=== PATIENT | female | born 1975 | race American Indian/Alaskan Native ===

== ENCOUNTER 2017-12-03 18:28 | Emergency (ER) | payer SELFPAY ==
--- NOTE | 2017-12-03 19:11 | Emergency Department Report ---
ED Chest Pain HPI - General Chief Complaint: Chest Pain Stated Complaint: CHEST PAIN Time Seen by Provider: 12/03/17 18:44 Source: EMS Mode of arrival: Ambulatory Limitations: No Limitations - History of Present Illness Initial Comments: 42-year-old female presents to the emergency department from home with a complaint of left-sided chest pain that started earlier this morning. There is some radiation towards the left shoulder and the back. It is associated with some shortness of breath but she denies any fever, nausea, vomiting or diaphoresis. She tried some Goody powder without any relief. The symptoms have been intermittent but getting progressively worse. She has a past medical history of epilepsy and anxiety. She has a tobacco smoker. She denies any illicit drug use. Her primary care physician is through [facility] (formerly [facility]3]. Severity scale (0 -10): 5 - Related Data Previous Rx's Medication Instructions Recorded Last Taken Type Esomeprazole Magnesium [NexIUM] 40 mg PO QDAY #30 capsule. 07/16/14 Unknown Rx Famotidine [Pepcid] 20 mg PO BID #60 tablet 07/16/14 Unknown Rx Ondansetron [Zofran Odt] 4 mg PO Q8HR PRN #10 tab.rapdis 07/16/14 Unknown Rx LORazepam [Ativan] 2 mg PO Q8HR PRN #10 tablet 12/03/17 Unknown Rx levETIRAcetam [Keppra] 500 mg PO BID #60 tablet 12/03/17 Unknown Rx Allergies Allergy/AdvReac Type Severity Reaction Status Date / Time acetaminophen [From Anexsia] AdvReac Anaphylaxis Verified 07/16/14 11:32 hydrocodone bitartrate AdvReac Anaphylaxis Verified 07/16/14 11:32 [From Anexsia] montelukast sodium AdvReac Anaphylaxis Verified 07/16/14 11:32 [From Singulair] Heart Score - HEART Score History: Slightly suspicious EKG: Non-specific Age: < 45 Risk factors: 1-2 risk factors Troponin: < normal limit HEART Score: 2 - Critical Actions Critical Actions: 0-3 pts:0.9-1.7%risk of adverse cardiac event.Candidate for discharge ED Review of Systems ROS: Stated complaint: CHEST PAIN Other details as noted in HPI Comment: All other systems reviewed and negative Constitutional: denies: chills, fever Eyes: denies: eye pain, eye discharge, vision change ENT: denies: ear pain, throat pain Respiratory: shortness of breath. denies: cough Cardiovascular: chest pain. denies: palpitations Gastrointestinal: denies: abdominal pain, nausea, diarrhea Genitourinary: denies: dysuria, discharge Musculoskeletal: back pain, arthralgia Skin: denies: rash, lesions Neurological: denies: headache, weakness ED Past Medical Hx - Past Medical History Hx Seizures: Yes Hx Asthma: Yes - Surgical History Additional Surgical History: hyst - Social History Smoking Status: Current Every Day Smoker - Medications Home Medications: Home Medications Medication Instructions Recorded Confirmed Last Taken Type Esomeprazole Magnesium [NexIUM] 40 mg PO QDAY #30 capsule. 07/16/14 Unknown Rx Famotidine [Pepcid] 20 mg PO BID #60 tablet 07/16/14 Unknown Rx Ondansetron [Zofran Odt] 4 mg PO Q8HR PRN #10 tab.rapdis 07/16/14 Unknown Rx LORazepam [Ativan] 2 mg PO Q8HR PRN #10 tablet 12/03/17 Unknown Rx levETIRAcetam [Keppra] 500 mg PO BID #60 tablet 12/03/17 Unknown Rx ED Physical Exam - General Limitations: No Limitations - Other Other exam information: GENERAL: The patient is well-developed well-nourished. HEENT: Normocephalic. Atraumatic. Patient has moist mucous membranes. EYES: Extraocular motions are intact. Pupils are equal and reactive to light bilaterally. NECK: Supple. Trachea is midline. CHEST/LUNGS: Clear to auscultation. There is no respiratory distress noted. HEART/CARDIOVASCULAR: Regular. There is no tachycardia. There is no gallop rub or murmur. ABDOMEN: Abdomen is soft, nontender. Patient has normal bowel sounds. There is no abdominal distention. SKIN: Skin is warm and dry. NEURO: The patient is awake, alert, and oriented. The patient is cooperative. The patient has no focal neurologic deficits. The patient has normal speech. MUSCULOSKELETAL: There is no tenderness or deformity. There is no limitation range of motion. There is no evidence of acute injury. ED Course Vital Signs 12/03/17 12/03/17 12/03/17 18:31 18:46 19:15 Temperature 98.6 F Pulse Rate 82 Respiratory 16 16 Rate Blood Pressure Blood Pressure 138/96 [Left] O2 Sat by Pulse 99 100 Oximetry 12/03/17 12/03/17 12/03/17 19:24 19:41 19:45 Temperature Pulse Rate 85 80 Respiratory 19 Rate Blood Pressure 136/94 126/74 Blood Pressure [Left] O2 Sat by Pulse 99 94 Oximetry 12/03/17 12/03/17 12/03/17 20:00 20:15 20:30 Temperature Pulse Rate 81 74 74 Respiratory 20 16 18 Rate Blood Pressure 131/76 120/68 123/74 Blood Pressure [Left] O2 Sat by Pulse 100 99 98 Oximetry 12/03/17 12/03/17 12/03/17 20:45 21:00 21:15 Temperature Pulse Rate 71 72 76 Respiratory 17 18 14 Rate Blood Pressure 114/68 109/69 131/73 Blood Pressure [Left] O2 Sat by Pulse 100 99 100 Oximetry 12/03/17 12/03/17 12/03/17 21:30 21:45 22:00 Temperature Pulse Rate Respiratory 19 13 19 Rate Blood Pressure 120/68 116/75 120/71 Blood Pressure [Left] O2 Sat by Pulse 100 100 100 Oximetry 12/03/17 12/03/17 12/03/17 22:15 22:30 22:45 Temperature Pulse Rate Respiratory 14 19 16 Rate Blood Pressure 121/71 119/69 123/73 Blood Pressure [Left] O2 Sat by Pulse Oximetry - Consultations Consultation #1: 12/04/17 00:02 The licensed occupational therapist on-call, Dr. Salmon, was gracious enough to take a look at the patient's EKG and concurs that it appears most consistent with J-point elevation and/or early repolarization and that there are no signs of any morphology consistent with ST elevation MS. FADI score - Fadi Score Age > 65: (0) No Aspirin use within the Past 7 Days: (0) No 3 or more CAD Risk Factors: (0) No 2 or more Angina events in past 24 hrs: (1) Yes Known CAD with more than 50% Stenosis: (0) No Elevated Cardiac Markers: (0) No ST Deviation Greater than 0.5mm: (0) No FADI Score: 1 ED Medical Decision Making - Lab Data Result diagrams: 12/03/17 19:06 12/03/17 19:06 - EKG Data -: EKG Interpreted by Me EKG shows normal: sinus rhythm, axis, intervals, QRS complexes (septal Q waves) , ST-T waves (mild ST elevation 2 leads V1 and V2 but no reciprocal depressions) Rate: normal - EKG Data When compared to previous EKG there are: previous EKG unavailable Interpretation: other (sinus rhythm, normal axis, normal intervals. Q waves to the septal leads. Mild ST elevations to leads V1 and V2 but no reciprocal depressions) - Radiology Data Radiology results: image reviewed interpreted by me: Chest x-ray did not show any pleural effusion, focal consolidation, pneumothorax or obvious pneumonia. - Medical Decision Making Patient presented with some left-sided chest pain that started earlier today. EKG does not show any signs of ST elevation MS or dysrhythmia. Chest x-ray does not show any acute process including no pleural effusions, pneumothorax, focal consolidation or pneumonia. Labs have been unremarkable including negative troponins 2 and a negative d-dimer. Patient was given a single dose of pain medication and had almost complete resolution of her chest discomfort. The patient's only risk factor for coronary artery disease is her tobacco use. A repeat EKG was also done that did not show any changes. The patient was reevaluated multiple times of her multiple hours and is feeling improved and asking for discharge home. Since she has had a negative workup thus far and is feeling improved, she will be discharged home to follow up outpatient with cardiology and primary care. She will return to the ER with any worsening of her symptoms or any acute distress. The patient is very low on the heart score criteria. She has a low FADI score. - Differential Diagnosis MS, PE, costal chondritis, GERD Critical Care Time: No Critical care attestation.: If time is entered above; I have spent that time in minutes in the direct care of this critically ill patient, excluding procedure time. ED Disposition Clinical Impression: Chest pain Qualifiers: Chest pain type: unspecified Qualified Code(s): R07.9 - Chest pain, unspecified Disposition: DC-01 TO HOME OR SELFCARE Is pt being admited?: No Condition: Stable Instructions: Chest Pain (ED), How to Stop Smoking (ED) Additional Instructions: Please follow up with a licensed occupational therapist in the next few days. I have given you a referral for a local licensed occupational therapist, Dr. Salmon. I have also given you some referrals for local primary care clinics. Please try and quit smoking. Return to the emergency department immediately with any return of her chest pain, worsening of your symptoms, or any acute distress. You have been prescribed a medication that can be sedating. Therefore this medication should not be mixed with alcohol of any quantity, and cannot be taken prior to driving, working, or being responsible for children. Prescriptions: levETIRAcetam [Keppra] 500 mg PO BID #60 tablet LORazepam [Ativan] 2 mg PO Q8HR PRN #10 tablet PRN Reason: Anxiety Referrals: PRIMARY CAREMD [Primary Care Provider] - 2-3 Days [facility] [Outside] - 2-3 Days CHERRIE SALMON MD [Staff Physician] - 2-3 Days [facility] [Outside] - 2-3 Days Time of Disposition: 22:50
[2017-12-03 19:33] LABS: Basophils % (Auto) 0.5 % (0.0-1.8); Eosinophils % (Auto) 0.3 % (0.0-4.3); Lymphocytes # (Auto) 3.2 K/mm3 (1.2-5.4); Lymphocytes % (Auto) 34.5 % (13.4-35.0); Mean Corpuscular HGB Conc 36 % (30-34); Mean Corpuscular Hemoglobin 32 pg (28-32); Mean Corpuscular Volume 89 fl (79-97); Monocytes # (Auto) 0.4 K/mm3 (0.0-0.8); Monocytes % (Auto) 4.4 % (0.0-7.3); Platelet Count 254 K/mm3 (140-440); Red Cell Distribution Width 14.4 % (13.2-15.2)
[2017-12-03 19:35] LABS: Hematocrit 41.7 % (30.3-42.9)
[2017-12-03] MEDS ORDERED: MORPHINE IV ONE (19:42)
[2017-12-03 19:52] LABS: BUN/Creatinine Ratio 11; Blood Urea Nitrogen 9 mg/dL (7-17); Calcium 9.1 mg/dL (8.4-10.2); Hemolysis Index 11
--- NOTE | 2017-12-03 20:39 | XRay Report ---
FINAL REPORT PROCEDURE: Chest. TECHNIQUE: Portable AP view. HISTORY: Chest pain. COMPARISON: No prior studies are available for comparison. FINDINGS: The heart and mediastinum appear normal. The lungs are clear and well expanded. There are no pleural effusions. The soft tissues and regional skeleton are unremarkable. IMPRESSION: Negative portable chest.
[2017-12-03 23:00] VITALS: BP 123/73
== END 2017-12-03 23:01 | disposition home or self-care (01) ==
LOC: ED 18:28
DX: R07.89 Other chest pain (principal); J45.909 Unspecified asthma, uncomplicated; F17.200 Nicotine dependence, unspecified, uncomplicated; G40.909 Epilepsy, unspecified, not intractable, without status epilepticus; F41.9 Anxiety disorder, unspecified; Z88.6 Allergy status to analgesic agent
CPT/HCPCS: 36415; 71045; 80048; 84484; 84703; 85025; 85379; 93005; 93010; 96374; 99284; J2270